=== PATIENT | male | born 1980 | race Caucasian/White ===

== ENCOUNTER 2025-04-04 09:59 | Emergency (ER) | payer MEDICARE, MEDICAID, SELFPAY ==
--- NOTE | 2025-04-04 10:03 | ED_ITS ---
HPI - Skin/Abscess/Foreign Bdy General Chief complaint: Skin/Abscess/Foreign Body Stated complaint: Eye and Skin Irritation Time Seen by Provider: 04/04/25 10:02 Source: patient Mode of arrival: ambulatory Limitations: no limitations History of Present Illness HPI narrative: Christopher is a 44-year-old male patient presenting to the clinic today with complaints of itchy, red, blistery rash on his arms and legs. States his eyes do feel itchy. He reports no chest pain or shortness of breath. Son has similar rash. Related Data Allergies Allergy/AdvReac Type Severity Reaction Status Date / Time Contrast Media Allergy Mild Rash Uncoded 09/06/08 16:29 Review of Systems Review of Systems: Pertinent positives per HPI. Patient denies any fever, chills, headache, visual changes, dizziness, cough, runny nose, sore throat, shortness of breath, chest pain, palpitations, nausea, vomiting, diarrhea, constipation, abdominal pain, or any urinary issues. PMFSH Comments At the time of my signature, I reviewed and agree with the nursing past medical, surgical, social, and family history. There is no relevant family history pertinent to the patient complaint. Exam Narrative: General: Well-developed, well nourished, in no apparent distress Head: Normocephalic, atraumatic. Cardio: Regular rate and rhythm, s1 and s2 normal, no murmur appreciated. Resp: Clear to auscultation bilaterally, no rhonchi, rales, wheezing or rubs. Integumentary: [place], warm, and dry, intact without lesion, red, raised, itchy, blistery rash to the arms and legs Course Course Emergency Course: Portions of this record may have been created with voice recognition software. Level of Care: Express Care Visit Vital Signs Vital signs: Vital Signs Temperature 36.7 C 04/04/25 10:18 Pulse Rate 78 04/04/25 10:18 Respiratory Rate 16 04/04/25 10:18 Blood Pressure 140/79 04/04/25 10:18 Pulse Oximetry 96 04/04/25 10:18 Oxygen Delivery Room Air 04/04/25 10:18 Temperature 36.7 C 04/04/25 10:18 Pulse Rate 78 04/04/25 10:18 Respiratory Rate 16 04/04/25 10:18 Blood Pressure 140/79 04/04/25 10:18 Pulse Oximetry 96 04/04/25 10:18 Oxygen Delivery Room Air 04/04/25 10:18 Vital signs reviewed MDM - Skin/Abscess/Foreign Bdy MDM Narrative Medical decision making narrative: At the time of visit patient is resting comfortably on the exam table. Patient appears to be nontoxic. Plan: I suspect patient has poison luci dermatitis. Prescription for triamcinolone cream and prednisone was sent to the pharmacy. Supportive measures were discussed with the patient and they voiced understanding discharge instructions and agrees to treatment plan. Return precautions reviewed Differential Diagnosis Differential diagnosis: Likely abscess of skin or subcutaneous tissue, viral exanthem, dermatophytosis, urticaria, herpes zoster, allergic reaction to drug, cellulitis, eczema, insect bites, impetigo and contact dermatitis Discharge Plan Discharge Clinical Impression: Poison luci dermatitis Patient Disposition: Home Condition: Stable Instructions: Antibiotic Form, Poison Luci (ED) Additional Instructions: Apply triamcinolone cream as directed Take prednisone as directed Avoid hot showers May apply calamine lotion to rash May take Pepcid 20-40 mg daily-this acts as a histamine roberto Avoid scratching and this causes rash to spread or can cause infection May take Benadryl 25-50mg every 6 hours as needed for itching. Follow up with your PCP in 3-5 days if symptoms persist or sooner if they worsen Go to the Emergency Room if symptoms worsen- fever, rash spreading with treatment, shortness of breath, tongue swelling, drooling, or chest pain Patient Language: Ethiopian Prescriptions: New triamcinolone acetonide 0.1 % cream 1 applic topical BID 7 Days Qty: 30 0RF prednisone 10 mg tablet 10 mg PO DAILY Qty: 30 0RF Rx Instructions: 60mg po daily on day 1, 40mg po daily on days 2-4, 30mg po daily on days 5-6, 20mg po daily on days 7-8, 10mg po daily on days 9-10 Follow-up/Referrals: Stephanie,Aurelio Lezama MD [Primary Care Provider] - Time of Disposition: 10:26 Quality NIHSS Nursing Documentation ED NIHSS nursing documentation: reviewed/agree
[2025-04-04 10:18] VITALS: BP 140/79; PULSE 78; RESP 16; TEMP 36.7; O2SAT 96
== END 2025-04-04 11:00 | disposition home or self-care (01) ==
PROVIDERS: Emergency Provider Nurse Practitioner Family; PCP Internal Medicine
DX: L23.7 Allergic contact dermatitis due to plants, except food (principal)
CPT/HCPCS: 99203; G0463